=== PATIENT | female | born 1980 | race Two or more races ===

== ENCOUNTER 2020-04-02 19:29 | Emergency (ER) | payer BC ==
[~2020-04-02] VITALS: Ht 160 cm; Wt 86.2 kg
--- NOTE | 2020-04-02 19:37 | NUR ---
LEOLA TERRELL at bedside for MSE
--- NOTE | 2020-04-02 19:45 | NUR ---
left middle finger laceration cleansed with normal saline and pat dry
--- NOTE | 2020-04-02 19:57 | NUR ---
Patient discharged to home in stable condition. Written and verbal after care instructions given. Patient verbalizes understanding of instructions. Stressed follow up or return to ER for worsening s/s. Patient ambulated out of ER with steady gait, no acute signs of distress, VSS, all belongings taken.
[2020-04-02 19:58] VITALS: BP 143/88
== END 2020-04-02 19:58 | disposition home or self-care (01) ==
LOC: ER 19:31
DX: S61.213A Laceration without foreign body of left middle finger without damage to nail, initial encounter (principal); V48.4XXA Person boarding or alighting a car injured in noncollision transport accident, initial encounter; Y92.89 Other specified places as the place of occurrence of the external cause; E11.22 Type 2 diabetes mellitus with diabetic chronic kidney disease; N18.9 Chronic kidney disease, unspecified
CPT/HCPCS: A4663